=== PATIENT | male | born 1970 | race Caucasian/White ===

== ENCOUNTER 2023-10-20 09:31 | Emergency (ER) | payer BC, SELFPAY ==
[2023-10-20 09:55] VITALS: BP 143/93
--- NOTE | 2023-10-20 12:03 | ED.GENMED ---
History of Present Illness
General
Chief Complaint: Rectal Bleeding
Time Seen by Provider: 10/20/23 11:49
Travel History
Have you had any contact with someone who has COVID-19?: No
Do you have any symptoms of coronavirus? Fever > 100 degrees, chills, cough, shortness of breath, sore throat, loss of taste or smell, muscle aches, or headache?: No
History of Present Illness
History of Present Illness:
53-year-old male history of asthma presenting with lower abdominal pain and bright red blood per rectum starting this morning. Patient states that he got up around midnight to urinate which was normal for him. Patient states that he woke up this
morning felt like he needed to have a bowel movement. Patient states that he was constipated and straining on the toilet. Patient states he is having lower abdominal pain. Patient states that that he had bright red blood per rectum. Patient
denies nausea, vomiting, fever, chills, dysuria or hematuria. Patient is not on blood thinners. Patient states that similar episode happened 15 years ago when he was seen in the ER. No recent travel.
Past History
Past History
ED Past Medical History: Negative Arrthythmia, Asthma, CAD, Cancer, CHF, COPD, CVA or Hypercholesterolemia
ED Past Surgical History: Other (Hernia)
Social History
Tobacco: Non-smoker
Alcohol: None
Drug: None
Personal:
Living: with family
Employment: Employed
Family History
Family History: Hypertension
Phy Exam
Physical Exam
Physical Exam:
General: Alert, no acute distress
Head: NCAT
Eyes: clear conjunctiva
Neck: supple
Cardiac: regular rate and rhythm, no murmur
Lungs: clear to auscultation bilaterally. No wheezes, rales, or rhonchi. Speaking full unlabored sentences. No respiratory distress.
Abdomen: soft, nondistended lower abdominal tenderness to palpation. No rebound or guarding.
MSK: no lower extremity edema bilaterally. No deformity
Skin: warm, dry
Neuro: Alert and oriented x3. no focal deficits
Rectal: minimal stool in rectal vault. Guaiac negative. No external hemorrhoids
Course
Orders/Labs/Results
Orders:
Orders
10/20/23 12:02
CT Abd/pelvis W Iv Cont Urgent
Comment:
Reason For Exam: lower abdominal tenderness, bloody stools
10/20/23 12:03
0.9% Sodium Chloride 1000 ml [Nss] 1,000 ml IV BOLUS
10/20/23 12:15
Type+Screen Urgent
CBC/With Diff [Complete Blood Count/With Diff] Urgent
CMP [Comprehensive Metabolic Panel] Urgent
Lipase Urgent
Protime/PTT Urgent
10/20/23 13:41
UA Reflex to Culture [Urinalysis Reflex To Culture] Urgent
Date Specimen was Collected: 10/20/23
Time Specimen was Collected: 13:39
10/20/23 15:24
LevoFLOXacin [Levaquin] 500 mg PO NOW STA
MetroNIDAZOLE [Flagyl] 500 mg PO NOW STA
Abnormal Lab Results
10/20/23
12:15
WBC 14.4 H 10^3/uL
(4.8-10.8)
Abs Immat Gran (auto) 0.1 H 10^3/uL
(0-0.05)
Absolute Neuts (auto) 12.7 H 10^3/uL
(1.4-6.5)
Absolute Lymphs (auto) 0.9 L 10^3/uL
(1.2-3.4)
Absolute Monos (auto) 0.7 H 10^3/uL
(0.1-0.6)
Neutrophils % 88.0 H %
(42.2-75.2)
Lymphocytes % 6.2 L %
(20.5-51.1)
Glucose 113 H mg/dl
(70-99)
10/20/23 12:15
10/20/23 12:15
Vital Signs
Initial and Last Documented VS:
Initial Vital Signs
Temp Pulse Resp BP Pulse Ox
98.0 F 79 16 143/93 98
10/20/23 09:55 10/20/23 09:55 10/20/23 09:55 10/20/23 09:55 10/20/23 09:55
Last Documented Vital Signs
Temp Pulse Resp BP Pulse Ox
98.0 F 79 16 164/91 98
10/20/23 09:55 10/20/23 15:48 10/20/23 09:55 10/20/23 15:48 10/20/23 09:55
MDM/Problems Addressed
MDM/Problems Addressed:
Patient presents to the Emergency Department with lower abdominal pain, bright red blood per rectum
Number and Complexity of Problems Addressed at the Encounter
� Chronic conditions affecting care:
� Acute Exacerbation and/or Progression of Chronic Illness:
� Differential Diagnosis includes: GI bleed, hemorrhoids, diverticulitis, colitis
Amount and/or Complexity of Data to be Reviewed and Analyzed
� I performed an independent evaluation of and my interpretation is:
EKG:
CT:
Xrays:
Laboratory Studies: leukocytosis at 14.4, not anemia with hemoglobin 15.9. electrolytes/LFTs/lipase within normal limits
Other:
� Review of other/old records reveals: Patient seen in 2011, diagnosed with colitis, discharged with levaquin/flagyl
� Clinical information was obtained by an independent historian:
� Prescriptions/Medications Considered but not given:
� Further testing considered but not performed:
Risk of Complications and/or Morbidity or Mortality of Patient Management
� Social Determinants of health affecting care:
� Discussion with other providers (PCP, Hospitalists, Consultants, etc):
� Escalation of care including admission/observation vs risk of discharge considered: 53yoM presenting with lower abdominal pain and bright red blood per rectum starting earlier today with no fever, chills, or vomiting. Patient not on blood
thinners. Guaiac negative. Hemoglobin 15.9. WBC 14.4. CT abdomen/pelvis showed acute colitis involving descending and proximal sigmoid colon. Given leukocytosis and bloody stools, will treat empirically with levaquin and flagyl. Stool culture sent.
Vitals stable. Advised follow up with PCP and GI
*Critical Care Note
Total Time (30-74mins, 75-104mins- exclusive of procedures): Not Applicable
ED Attending Note
-
Portions of this chart may have been created with voice recognition software.� Occasional wrong word or��sound alike� substitutions may have occurred due to the inherent limitations of voice recognition software.
Discharge Plan
Departure
Patient Disposition: Home (Routine Discharge)
Date of Disposition: 10/20/23
Time of Disposition: 15:25
Patient with high blood pressure during this ER visit?: Yes
Discharge Problem:
Colitis
Instructions: Colitis (DC), BLOOD PRESSURE
Prescriptions:
New
levofloxacin 500 mg tablet
500 mg PO DAILY 5 Days Qty: 5 0RF
metronidazole 500 mg tablet
500 mg PO TID 5 Days Qty: 15 0RF
Referrals:
Yan Dugan MD [Active] -
Toney Romo MD [Family Provider] -
Activity Restrictions/Additional Instructions:
Take Flagyl 3 times daily and Levaquin daily for the next 5 days. Do not drink alcohol while taking flagyl as it can cause a bad reaction. You may consume alcohol again 48 hours after last dose.
Follow up with primary care doctor in 1-2 days. Follow up with gastroenterology within 1 week
Return to the emergency department for fever, persistent vomiting or new/worsening symptoms
Interventions
Interventions:
*Risk Screen - Suicide Last Done: 10/20/23 15:43
*General Assessment Last Done: 10/20/23 15:43
*Neglect/Abuse Screening Last Done: 10/20/23 15:48
*ED COVID-19 Vaccine History Last Done: 10/20/23 09:55
*Nursing Disposition Last Done: 10/20/23 15:48
CJ-Rjxotu-Tvqaozfvku Assessment Last Done: 10/20/23 13:00
ED- Cardiac Assessment Last Done: 10/20/23 13:00
ED- Pulmonary Assessment Last Done: 10/20/23 13:00
Discharge Date and Time
Discharge Date/Time: 10/20/23 15:48
Print Language: GREENLANDIC
[2023-10-20] MEDS: NSS 1000 IV (12:19)
[2023-10-20 12:31] LABS: % Basophils 0.2 % (0-2); % Eosinophils 0.3 % (0-6); % Immature Granulocytes 0.5 % (0-0.5); % Lymphocytes 6.2 % (20.5-51.1); % Monocytes 4.8 % (1.7-9.3); Absolute Eosinophils 0.1 10^3/uL (0-0.7); Absolute Immature Granulocytes 0.1 10^3/uL (0-0.05); Absolute Lymphocytes 0.9 10^3/uL (1.2-3.4); Absolute Monocytes 0.7 10^3/uL (0.1-0.6); Absolute Neutrophils 12.7 10^3/uL (1.4-6.5); Hematocrit 46.9 % (39.0-52.0); Hemoglobin 15.9 g/dL (13.0-18.0); Mean Corp Hgb Conc. 33.9 g/dL (33.0-37.0); Mean Corpuscular Hgb 29.9 pg (27.0-31.0); Mean Corpuscular Volume 88.3 fL (80.0-94.0); Mean Platelet Volume 8.6 fL (7.4-10.4); Nucleated Red Blood Cells % 0 % (-); Platelet Count 270 10^3/uL (130-400); Red Blood Cell Count 5.31 10^6/uL (4.70-6.10); White Blood Cell Count 14.4 10^3/uL (4.8-10.8)
[2023-10-20 12:45] LABS: ALT (SGPT) 45 U/L (0-50); AST (SGOT) 27 U/L (17-59); Albumin 4.4 g/dl (3.5-5.0); Alkaline Phosphatase 70 U/L (38-126); Blood Urea Nitrogen 17 mg/dl (9-20); Calcium 9.4 mg/dl (8.4-10.2); Carbon Dioxide 27 mmol/L (22-30); Chloride 106 mmol/L (98-107); Glucose 113 mg/dl (70-99); Lipase 73 U/L (23-300); Potassium 4.5 mmol/L (3.5-5.1); Sodium 141 mmol/L (135-145); Total Bilirubin 0.9 mg/dl (0.2-1.3); Total Protein 6.9 g/dl (6.3-8.2); eGFR > 60.00
[2023-10-20 12:48] LABS: INR 0.98; PT 12.8 Sec (11.4-14.6)
[2023-10-20 12:49] LABS: APTT 26.1 Sec (23.4-35.0)
[2023-10-20 13:51] LABS: Urine Albumin Negative (Neg - Trace); Urine Bilirubin Negative (Negative); Urine Character Clear (Clear); Urine Color Yellow; Urine Glucose Negative (Negative); Urine Ketone Negative (Negative); Urine Leukocyte Negative (Negative); Urine Nitrite Negative (Negative); Urine Occult Blood Negative (Negative); Urine Urobilinogen Negative (Neg - 1+)
[2023-10-20] MEDS: FLAGYL 500 MG PO (15:41)
[2023-10-20] MEDS: LEVAQUIN 500 MG PO (15:41)
[2023-10-20 15:48] VITALS: BP 164/91
== END 2023-10-20 15:48 | disposition home or self-care (01) ==
LOC: EMR 09:31
PROVIDERS: EMERGENCY PHYSICIAN Emergency Medicine; FAMILY PHYSICIAN Internal Medicine
DX: K52.9 Noninfective gastroenteritis and colitis, unspecified (principal); R03.0 Elevated blood-pressure reading, without diagnosis of hypertension; J45.909 Unspecified asthma, uncomplicated
CPT/HCPCS: 99285; 96360; 74177; 80053; 81003; 83690; 85025; 85610; 85730; 86850; 86900; 86901; Q9967

== ENCOUNTER → 2024-04-02 06:19 | Day surgery (SDC) | payer BC, SELFPAY | LOC: GI 06:19 | PROVIDERS: ATTENDING PHYSICIAN Internal Medicine Gastroenterology | DX: Z12.11 Encounter for screening for malignant neoplasm of colon (principal); D12.2 Benign neoplasm of ascending colon; K57.30 Diverticulosis of large intestine without perforation or abscess without bleeding; K64.8 Other hemorrhoids; Z80.0 Family history of malignant neoplasm of digestive organs | CPT/HCPCS: 45385; 88305 ==

== ENCOUNTER 2025-01-04 20:37 | Day surgery (SDC) | payer BC, SELFPAY ==
[2025-01-04] VITALS (8 sets, daily range): BP systolic 110–162; BP diastolic 62–88; BMI 33.8; BMI 33.9
[2025-01-04 16:35] LABS: Hematocrit 41.6 % (39.0-52.0); Hemoglobin 14.1 g/dL (13.0-18.0); Mean Corp Hgb Conc. 33.9 g/dL (33.0-37.0); Mean Corpuscular Volume 87.4 fL (80.0-94.0); Nucleated Red Blood Cells % 0 % (-); Platelet Count 215 10^3/uL (130-400); Red Cell Dist. Width 12.8 % (11.5-14.5)
[2025-01-04 16:55] LABS: ALT (SGPT) 24 U/L (0-50); AST (SGOT) 17 U/L (17-59); Albumin 4.2 g/dl (3.5-5.0); Alkaline Phosphatase 66 U/L (38-126); Blood Urea Nitrogen 12 mg/dl (9-20); Calcium 9.1 mg/dl (8.4-10.2); Carbon Dioxide 22 mmol/L (22-30); Chloride 106 mmol/L (98-107); Glucose 106 mg/dl (70-99); Lipase 60 U/L (23-300); Potassium 4.2 mmol/L (3.5-5.1); Sodium 135 mmol/L (135-145); Total Protein 6.5 g/dl (6.3-8.2); eGFR > 60.00
--- NOTE | 2025-01-04 17:43 | EDRN ---
pt. suddenly became very diaphoretic, complaining of a sudden burning in this R side and nausea. States he feels worse. Vitals repeated, stable but noted drop in BP. WNL. Charge made aware, looking for a room.
--- NOTE | 2025-01-04 18:04 | ED.GENMED ---
History of Present Illness
General
Chief Complaint: Abdominal Pain
Source: patient
Exam Limitations: none
Time Seen by Provider: 01/04/25 18:03
Nursing documentation reviewed up to this point in time: agreed with
History of Present Illness
History of Present Illness:
Patient is a 54-year-old male who presents to the ER complaining of right lower quadrant pain for the past 3 days. Patient denies any nausea vomiting diarrhea. Patient denies any urinary frequency urgency denies any testicle pain. Patient last
ate last evening around 8 PM. He did drink small amount of water prior to come to the ER. He denies any actual fever or chills.
Past History
Past History
ED Past Medical History: Negative Arrthythmia, Asthma, CAD, Cancer, CHF, COPD, CVA or Hypercholesterolemia
ED Past Surgical History: Other (Hernia)
Social History
Tobacco: Non-smoker
Alcohol: None
Drug: None
Personal:
Living: with family
Employment: Employed
Family History
Family History: Hypertension
Phy Exam
General Physical Exam
General Presentation: no apparent distress
General age: appears stated age
General Skin: warm and dry
General Habitus: normal
General Mental: alert
General Hydration: appears well hydrated
Cardiovascular Exam
Cardiovascular Exam: regular rate/rhythm, no murmur and normal peripheral pulses
Pulmonary Exam
Pulmonary Exam: lungs clear and no respiratory distress
Gastrointestinal Exam
Gastrointestinal Exam: soft and other (Tender right lower quadrant)
Neurological Exam
Neurological Exam: alert and oriented x3
Musculoskeletal Exam
Musculoskeletal Exam: full ROM
Skin Exam
Skin Exam: normal color and warm/dry
Psychiatric Exam
Psychiatric Exam: normal mood/affect
Course
Orders/Labs/Results
Orders:
Orders
01/04/25 16:30
Complete Blood Count/With Diff Urgent
Comprehensive Metabolic Panel Urgent
Lipase Urgent
01/04/25 18:03
CT Abd/Pel (IV only)-DH only Urgent
Comment:
Reason For Exam: RLQ pain
01/04/25 18:08
0.9% Sodium Chloride 1000 ml [Nss] 1,000 ml IV BOLUS
HYDROmorphone [Dilaudid] 1 mg IV NOW STA
Ondansetron Injectable [Zofran] 4 mg IV NOW STA
Abnormal Lab Results
01/04/25
16:30
WBC 15.0 H 10^3/uL
(4.8-10.8)
Abs Immat Gran (auto) 0.1 H 10^3/uL
(0-0.05)
Absolute Neuts (auto) 12.9 H 10^3/uL
(1.4-6.5)
Absolute Lymphs (auto) 1.0 L 10^3/uL
(1.2-3.4)
Absolute Monos (auto) 0.8 H 10^3/uL
(0.1-0.6)
Neutrophils % 86.3 H %
(42.2-75.2)
Lymphocytes % 6.7 L %
(20.5-51.1)
Glucose 106 H mg/dl
(70-99)
01/04/25 16:30
01/04/25 16:30
Vital Signs
Initial and Last Documented VS:
Initial Vital Signs
Temp Pulse Resp BP Pulse Ox
97.8 F 84 17 162/88 97
01/04/25 16:18 01/04/25 16:18 01/04/25 16:18 01/04/25 16:18 01/04/25 16:18
Last Documented Vital Signs
Temp Pulse Resp BP Pulse Ox
97.8 F 74 19 110/62 94
01/04/25 16:18 01/04/25 17:39 01/04/25 17:39 01/04/25 17:39 01/04/25 18:06
MDM/Problems Addressed
Differential Diagnosis Includes:
Not limited to appendicitis bowel obstruction diverticulitis colitis less likely renal colic
MDM/Problems Addressed:
As documented patient is a 54-year-old male with acute appendicitis symptoms started several nights ago. Patient is afebrile white count 15,000. CAT scan does show appendicitis' cannot entirely exclude contained perforation.' Patient was
medicated for pain and is feeling much better. He has been n.p.o. here in the ER IV Zosyn ordered. Case discussed with surgery Dr. Hebert who recommends admit to his service. Case discussed with house provider
*Radiology
Radiology exam reviewed: radiology read reviewed
*Pulse Oximetry
SaO2: 97
Oxygen Mode of Delivery: Room air
Patient hypoxic: no
*Critical Care Note
Total Time (30-74mins, 75-104mins- exclusive of procedures): Not Applicable
Patient Management
Discussion with other providers: [facility] Assistant Director (surg DR hebert )
ED Attending Note
-
Portions of this chart may have been created with voice recognition software.� Occasional wrong word or��sound alike� substitutions may have occurred due to the inherent limitations of voice recognition software.
Discharge Plan
Departure
Patient Disposition: Admit
Date of Disposition: 01/04/25
Time of Disposition: 19:29
Admit to: Med/Surg
Admit to doctor: DR Hebert
Presentation/result/management discussed w/ accepting MD/DO: surgery
Patient with high blood pressure during this ER visit?: Yes
Condition: Fair
Covid-19: Not Applicable
Discharge Problem:
Acute appendicitis
Prescriptions:
No Action
levofloxacin 500 mg tablet
500 mg PO DAILY 5 Days Qty: 5 0RF
metronidazole 500 mg tablet
500 mg PO TID 5 Days Qty: 15 0RF
Interventions
Interventions:
*Risk Screen - Suicide Last Done: 01/04/25 16:21
*General Assessment Last Done: 01/04/25 16:21
*Neglect/Abuse Screening Last Done: 01/04/25 16:21
*ED COVID-19 Vaccine History Last Done: 01/04/25 16:21
EK-Ihpxun-Cvfhbxwqll Assessment Last Done: 01/04/25 18:00
Discharge Date and Time
Print Language: ALBANIAN
[2025-01-04] MEDS: DILAUDID 1 MG IV (18:39)
[2025-01-04] MEDS: ZOFRAN 4 MG IV (18:39)
[2025-01-04] MEDS: NSS 1000 IV ×3 (18:41→22:26)
[2025-01-04] MEDS: ZOSYN 50 IV (19:49)
[2025-01-04] MEDS: DILAUDID 0.5 MG IV (22:35)
[2025-01-05] VITALS (11 sets, daily range): BP systolic 111–143; BP diastolic 62–76
--- NOTE | 2025-01-05 00:10 | HPS.HSE ---
Addendum entered and electronically signed by Donovan Hebert MD 01/05/25 12:42:
I saw and examined the patient.
The Home Stereo Equipment Installer's note was reviewed and I agree with the note.
Comment: Pt reports RKLQ pain that began 2 weeks ago, lasted three days, a/w constipation but no f/c/n/v, then resolved. 4 days ago the pain returned, always in RLQ, a/w general malaise and diaphorsis. He felt that part of his abdomen also was warm
to the touch. Denies f/c/n/v. AFVSS, ttp to rlq on exam, WBC elevated, CT with dilated inflamed appendix with fecalith. Plan for OR today for lap appy. Informed consent obtained.
Original Note:
Family Physician
-
Family Physician: Toney Romo
Chief Complaint
-
Abdominal pain
History of Present Illness
Patient is a 54 year old male with a past medical history significant for GERD, asthma, seasonal allergies who presents to the emergency department complaining of right lower quadrant pain for the past three days. Patient stated that the pain began
Friday night. He went fishing Friday, went to work today and pain continued so he came to the emergency department. He stated while sitting in the emergency department waiting room, he felt very hot and pain increased. Patient denies any nausea,
vomiting, or diarrhea. Patient denies any urinary frequency, urgency or testicle pain. Patient denies any fevers or chills.
In the emergency department, labs showed elevated WBC at 15.0, otherwise unremarkable. Vital signs stable, afebrile.
CT abd/pelvis: Findings suspicious for acute appendicitis with accompanying marked right lower quadrant surrounding stranding. No free air. Cannot entirely exclude contained perforation.
While in the emergency department patient received: Two 1L NSS boluses, Dilaudid, Zofran and Zosyn IV antibiotics.
ED provider AVERY Dan reviewed with General Surgery, Dr. Hebert, who is accepting the patient to his service.
Plan: NPO, IV antibiotics, IV fluids, pain management, and antiemetics.
Medical History
Past Medical History
Past Medical History: Reports Asthma, GERD and Other (seasonal allergies)
Past Surgical History: Reports Orthopedic (Bicep tendon reattached, right knee meniscus tear repair, b/l thumb joints replaced ) and Other (Hernia repair)
Social History
Tobacco: Smoker (cigars on weekends)
Alcohol: Occasional (summer, 3-4 drinks/day)
Drug: None
Personal:
Living: With Family
Employment: Employed
Family History
Family History: Not pertinent
Allergies / Home Medications
Allergies reflects when Allergies were last updated in [employer].
Home Medications with original date entered in [employer]
Allergy/Medication List:
Patient Allergies
Allergy/AdvReac Type Severity Reaction Status Date / Time
No Known Allergies Allergy Verified 01/04/25 16:19
Home Medications
�Medication �Instructions �Recorded
Unobtainable 01/04/25
Review of Systems
-
History Source: Patient
A 12 point ROS was completed and negative except as noted: Yes
Constitutional: Reports No Symptoms
EENT: Reports No Symptoms
Respiratory: Reports No Symptoms
Cardiac: Reports No Symptoms
Abdomen/GI: Reports Abdominal Pain (right lower quadrant)
: Reports No Symptoms
Musculoskeletal: Reports No Symptoms
Skin: Reports No Symptoms
Neurological: Reports No Symptoms
Endocrine: Reports No Symptoms
Hematologic/Lymphatic: Reports No Symptoms
Psych: Reports No Symptoms
Physical Exam
Vital Signs
Vital Signs
Temp Pulse Resp BP Pulse Ox
97.6 F 73 16 120/76 95
01/04/25 23:00 01/04/25 23:00 01/04/25 23:00 01/04/25 23:00 01/04/25 23:00
Physical Exam
General: Well Nourished, No Apparent Distress, Comfortable and Conversant
HEENT: Moist mucous membranes and PERRLA
Respiratory: Clear and Non Labored Respirations
Cardiac: S1/S2 and Regular Rhythm
GI: Soft, Normal Bowel Sounds and Tender (right lower quadrant)
Musculoskeletal: No Edema
Skin: Warm and Dry
Neuro: AO x 3
Psych: Calm and Intact Judgment/Insight
Laboratory Results
-
Laboratory Results
Total Bilirubin 0.9 mg/dl (0.2-1.3) 01/04/25 16:30
AST 17 U/L (17-59) 01/04/25 16:30
ALT 24 U/L (0-50) 01/04/25 16:30
Alkaline Phosphatase 66 U/L (38-126) 01/04/25 16:30
Lipase 60 U/L (23-300) 01/04/25 16:30
Data Reviewed
-
CT Scan: Report Reviewed by me
Lab Data: Labs Reviewed by me
Impression/Plan
-
IMPRESSION:
Patient is a 54 year old male with a past medical history significant for GERD, asthma, seasonal allergies who presents to the emergency department complaining of right lower quadrant pain for the past three days.
PLAN:
Acute appendicitis
-Admit to General Surgery, Med Surg under the service of Dr. Hebert
-CT Abd/Pelvis w/IV contrast - Findings suspicious for acute appendicitis with accompanying marked right lower quadrant surrounding stranding. No free air. Cannot entirely exclude contained perforation.
-NPO until seen by surgery, IV fluids NSS @ 125 mls/hr
-IV antibiotics: Continued Zosyn 3.375 mg Q6H.
-Pain medication: Dilaudid
-Antiemetics: Zofran
GERD
-Protonix 40 mg IV daily PRN
DVT prophylaxis: SCD's
Code status: Full code
[2025-01-05] MEDS: ZOSYN 50 IV ×4 (00:59→20:34)
--- NOTE | 2025-01-05 02:37 | DOWNTIME ---
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 Downtime documentation of patient's care, including medication administrations, has been reconciled in the electronic record per guidelines. Refer to the
patient's paper chart under the miscellaneous tab to see printed paper medication records and downtime forms.
[2025-01-05] MEDS: DILAUDID 1 MG IV ×2 (02:41→23:36)
[2025-01-05] MEDS: NSS 1000 IV ×2 (05:41→20:34)
[2025-01-05] MEDS: DILAUDID 0.5 MG IV ×2 (05:41→20:38)
[2025-01-05 06:23] LABS: Hematocrit 37.6 % (39.0-52.0); Hemoglobin 12.9 g/dL (13.0-18.0); Mean Corp Hgb Conc. 34.3 g/dL (33.0-37.0); Mean Corpuscular Volume 86.6 fL (80.0-94.0); Nucleated Red Blood Cells % 0 % (-); Platelet Count 182 10^3/uL (130-400); Red Cell Dist. Width 12.8 % (11.5-14.5)
[2025-01-05 06:45] LABS: Blood Urea Nitrogen 8 mg/dl (9-20); Calcium 8.4 mg/dl (8.4-10.2); Carbon Dioxide 24 mmol/L (22-30); Chloride 109 mmol/L (98-107); Estimated Creatinine Clearance > 125 ml/min; Glucose 86 mg/dl (70-99); Potassium 3.9 mmol/L (3.5-5.1); Sodium 136 mmol/L (135-145); eGFR > 60.00
--- NOTE | 2025-01-05 06:53 | W.PN.GS2 ---
Addendum entered and electronically signed by Donovan Hebert MD 01/05/25 12:43:
I was physically present and personally performed the carrizales portions of the surgical evaluation and/or procedure with the resident. I discussed the findings, reviewed the resident�s note, and confirmed the medical decision-making. I provided direct
supervision as required and agree with the assessment and plan as documented with the following additions/corrections: See addendum to H&P
Original Note:
Today's Communication / Plan
-
NPO
plan- laparoscopy appendicectomy.
Assessment / Plan
-
54 year old male with a past medical history significant for GERD, asthma, seasonal allergies presented with right lower quadrant pain
#Abdominal pain secondary to Acute Appendicitis:
labs : elevated WBC at 15.0-->11.4 (h), Vital signs Tmax- 98.2; stable, afebrile.
CT abd/pelvis: Findings suspicious for acute appendicitis with accompanying marked right lower quadrant surrounding stranding. No free air. Cannot entirely exclude contained perforation.
Currently NPO
Continue the IV fluids
Continue Zosyn 3.375 gm DAY2
Continue Zofran
CT Scan- shows no free air--> no perforation of appendix
plan: laparoscopic appendicectomy.
Subjective Data
-
Date of Service: January 05, 2025
Overnight pt has a concern for abdominal pain which reduced comparing from yesterday, the pain is not radiating, not associated with fever, chills, nausea, vomiting.
currently he is in NPO.
Objective Data
-
Intake and Output
01/03/25 01/04/25 01/05/25
06:59 06:59 06:59
Intake Total 1000 / 1000
Output Total 1000 / 1000
Balance 0 / 0
Intake:
IV fluids (Total) 1000 / 1000
Output:
Urine, Voided 1000 / 1000
Vital Signs
Temp Pulse Resp BP Pulse Ox
97.6 F 73 16 120/76 95
01/04/25 23:00 01/04/25 23:00 01/04/25 23:00 01/04/25 23:00 01/04/25 23:00
Lab Results
01/05/25 06:13
01/05/25 06:13
Calcium 8.4 mg/dl (8.4-10.2) 01/05/25 06:13
Total Bilirubin 0.9 mg/dl (0.2-1.3) 01/04/25 16:30
AST 17 U/L (17-59) 01/04/25 16:30
ALT 24 U/L (0-50) 01/04/25 16:30
Alkaline Phosphatase 66 U/L (38-126) 01/04/25 16:30
Total Protein 6.5 g/dl (6.3-8.2) 01/04/25 16:30
Albumin 4.2 g/dl (3.5-5.0) 01/04/25 16:30
Physical Exam
-
General: Well Nourished, No Apparent Distress, Comfortable and Conversant
Respiratory: Clear and Non Labored Respirations
Cardiac: S1/S2 and Regular Rhythm
GI: Soft, Normal Bowel Sounds, Tender (right lower quadrant)
Skin: Warm and Dry
Neuro: AO x 3
Patient has a grey catheter: No
Patient has a central line: No
[2025-01-05] MEDS: PROTONIX IV 40 MG IV (08:25)
[2025-01-05] MEDS: NSS (PRESERVATIVE FREE) 10 ML IV (08:25)
--- NOTE | 2025-01-05 09:32 | CM ---
Reviewed the chart notes and spoke with the patient at the bedside. The patient is admitted under observational status. Observational letter provided and explained. The patient had no questions with regards to the letter.
The patient resides with his spouse in a two story home with one step to enter. The patient reports no DME or SNF in past, but has had VN. Agency name unknown. The patient confirmed his [facility] of choice [facility]
continues to be available to patient/family and is monitoring medical plan for needs at discharge.
Plan: Discharge to home when medically stable. No needs anticipated at this time.
--- NOTE | 2025-01-05 12:35 | W.IMMPOSTOP ---
Addendum entered and electronically signed by Donovan Hebert MD 01/05/25 12:43:
called, unable to reach VM left
Original Note:
Surgical Immed Post Op Note
-
Primary Surgeon: Emilee
Pre-op Diagnosis: Acute appendicitis
Post-op Diagnosis: Same
Procedure Performed: Laparoscopic appendectomy
Anesthesia Type: GETA
Specimen / Cultures: Appendix
Estimated Blood Loss: 10cc
Complications: None immediate
Operative Findings: Severely inflamed, distended appendix adherent to lateral abdominal wall; friable necrotic tissue at base taken with johnson load endoGIA and oversewn with 2-0 PDS stratafix; no pus, scant feculent contamination emanating from
transected base of appendix specimen; irrigated thoroughly
--- NOTE | 2025-01-05 12:37 | OR.RPT ---
Operative Report
Operative Report
Primary Surgeon: Emilee
Pre-op Diagnosis: Acute appendicitis
Post-op Diagnosis: Same
Procedure Performed: Laparoscopic appendectomy
Anesthesia Type: GETA
Specimen / Cultures: Appendix
Estimated Blood Loss: 10cc
Complications: None immediate
Operative Findings: Severely inflamed, distended appendix adherent to lateral abdominal wall; friable necrotic tissue at base taken with johnson load endoGIA and oversewn with 2-0 PDS stratafix; no pus, scant feculent contamination emanating from
transected base of appendix specimen; irrigated thoroughly
Date of Surgery: 01/05/25
Indications: This 54M developed right lower quadrant abdominal pain and on workup was found to have acute appendicitis. Laparoscopic appendectomy was elected.
Description of procedure: The patient was placed on the operating table in the supine position. General anesthesia was induced. A time-out was completed verifying correct patient, procedure, site, positioning, and special equipment prior to
beginning this procedure. An orogastric tube was placed. The abdomen was prepped and draped in the usual sterile fashion. A stab incision was made in left upper quadrant and the Veress needle was inserted. Proper position was confirmed by aspiration
and saline meniscus test. The abdomen was insufflated with carbon dioxide to a pressure of 12 mmHg. The patient tolerated insufflation well.
A 5mm optical trocar was then inserted at the left lower quadrant. The laparoscope was inserted and the abdomen inspected. No injuries from initial trocar placement or Veress needle insertion were noted. Additional trocars were then inserted in the
following locations: a 12-mm trocar at the umbilicus and a 5-mm trocar midline in the suprapubic space. The abdomen was inspected and no abnormalities were found. The table was placed in the Trendelenburg position with the right side up. The cecum
and appendix were densley adherent to the lateral abdominal wall and were gently taken down bluntly. The terminal ileum was identified and protecte. The appendix was profoundly dilated and inflamed. Towards the base the appendiceal tissue showed
gangrenous changes and was very friable. The tip of the appendix was gently grasped with an atraumatic grasper and retracted toward the patient�s feet and abdominal wall. This maneuver exposed the appendiceal blood supply which was controlled with
the Ligasure device. Following this, a laparoscopic linear cutting stapler with a 45mm johnson load was deployed and used to transect the appendix at its base. The appendix was placed in an endoscopic retrieval bag, removed through the umbilical port,
and passed off the table as a specimen.
We then turned our attention to the staple line, which was noted to be hemostatic. However the tissue was friable and the tissue was of questionable integrity. This area was oversewn with 2-0 PDS stratafix suture. The abdomen and pelvis were then
thoroughly irrigated and suctioned. Contamination was minimal. The umbilical trocar site was closed at the fascial level laparoscopically with 2-0 PDS under direct vision. Secondary trocars were removed under direct vision and noted to be
hemostatic. The laparoscope was withdrawn and the abdomen was allowed to collapse. The skin was closed with subcuticular sutures of 4-0 monocryl and topical skin adhesive. The orogastric tube was removed.
The patient tolerated the procedure well and was taken to the postanesthesia care unit in stable condition.
--- NOTE | 2025-01-05 13:19 | PTCARENOTE ---
received patient from PACU. pt AAOX3. resting comfortably. pt on 2L nasal cannula, sat 96%. tolerating ice chips and sips of clears. lap sites LUISA with surgical adhesive, CDI.
[2025-01-05] MEDS: TYLENOL 1000 MG PO (17:50)
[2025-01-05] MEDS: LOVENOX 40 MG SC (17:50)
[2025-01-05] MEDS: ULTRAM 50 MG PO (18:09)
[2025-01-06] MEDS: DILAUDID 1 MG IV (02:33)
[2025-01-06] MEDS: ZOSYN 50 IV ×2 (02:33→08:44)
[2025-01-06 03:00] VITALS: BP 114/75
[2025-01-06] MEDS: DILAUDID 0.5 MG IV (05:35)
[2025-01-06] MEDS: NSS IV (06:11)
[2025-01-06 07:35] VITALS: BP 113/71
[2025-01-06] MEDS: NSS (PRESERVATIVE FREE) 10 ML IV (08:43)
[2025-01-06] MEDS: PROTONIX IV 40 MG IV (08:43)
[2025-01-06] MEDS: FLUSH (NSS) 2 FLUSH IV (08:47)
[2025-01-06] MEDS: ULTRAM 50 MG PO (08:47)
--- NOTE | 2025-01-06 08:54 | W.PN.GS2 ---
Today's Communication / Plan
-
DC
Assessment / Plan
-
54M POD1 s/p lap appy for acute appendicitis
AFVSS, following expected postop course
Plan:
Reg diet
IS
albuterol nebs x1
Ambulate
PO pain meds prn
IV abx while in house
DC home later today
Subjective Data
-
Date of Service: January 06, 2025
AFVSS, ambulating, has not yet eaten, pain controlled, pasing flatus, feels a little trouble with deep breaths, uses rescue inhaler at home occasionally
Objective Data
-
Intake and Output
01/05/25 01/06/25 01/07/25
06:59 06:59 06:59
Intake Total 1000 / 1000 1560 / 1560
Output Total 1000 / 1000 100 / 100
Balance 0 / 0 1460 / 1460
Intake:
Oral fluids 960 / 960
IV fluids (Total) 1000 / 1000 600 / 600
Normosol 100 / 100
Output:
Urine, Voided 1000 / 1000 100 / 100
Other:
Number of approximated MODERATE 3
amounts of urine
Number of approximated LARGE 1
amounts of urine
Vital Signs
Temp Pulse Resp BP Pulse Ox
97.6 F 89 16 113/71 94
01/06/25 07:35 01/06/25 07:35 01/06/25 07:35 01/06/25 07:35 01/06/25 07:35
Lab Results
01/05/25 06:13
01/05/25 06:13
Calcium 8.4 mg/dl (8.4-10.2) 01/05/25 06:13
Total Bilirubin 0.9 mg/dl (0.2-1.3) 01/04/25 16:30
AST 17 U/L (17-59) 01/04/25 16:30
ALT 24 U/L (0-50) 01/04/25 16:30
Alkaline Phosphatase 66 U/L (38-126) 01/04/25 16:30
Total Protein 6.5 g/dl (6.3-8.2) 01/04/25 16:30
Albumin 4.2 g/dl (3.5-5.0) 01/04/25 16:30
Physical Exam
-
Gen: NAD
Abd: soft, approp ttp, incisions cdi with glue
[2025-01-06] MEDS: VENTOLIN NEBULES 2.5 MG INH (09:10)
--- NOTE | 2025-01-06 10:30 | CM ---
Patient seen at bedside
OBS status
s/p Laparoscopic appendectomy
Plan: Discharge to home, No needs when stable
to transport
[2025-01-06 11:54] VITALS: BP 121/77
== END 2025-01-06 12:40 | disposition home or self-care (01) ==
LOC: PACU 20:37
PROVIDERS: Emergency Medicine; Nurse Practitioner Family; ATTENDING PHYSICIAN Surgery; EMERGENCY PHYSICIAN Emergency Medicine; FAMILY PHYSICIAN Internal Medicine
DX: K35.80 Unspecified acute appendicitis (principal); K38.1 Appendicular concretions; R10.31 Right lower quadrant pain
CPT/HCPCS: 44970; 74177; 80048; 80053; 83690; 85025; 87070; 88304; 93005; 94640; 96361; 96365; 96375; 99285; Q9967